=== PATIENT | female | born 1970 | race Caucasian/White ===

== ENCOUNTER → 2024-06-16 | Outpatient (CLI) | payer BC, SELFPAY ==
--- NOTE | 2024-06-16 | IMM_PTH ---
PATIENT: BEATRIZ GEIGER LOC: [facility] U#:[id number] AGE/SX: 54/F ROOM: RE06/16/[address]: Dr. Quin Limon DO : 1970 BED: DIS: 06/16/2024 SPEC #: [id number] RECD: 06/18/24 10:03 STATUS: KESHAWN REOlaf #: [id number] DARELL: 06/16/24 00:[address]: Quin Limon DEPT: IMMUNOHISTOCHEMISTRY RECD BY: Hank Martinez ENTERED: 06/18/24 10:03 SP TYPE: IMMUNO OTHR DR: NAZANIN GAGE DO Tissues: Skin of perianal area Procedures: H Pylori (initial) PHYSICIAN & INSTITUTION [place] [id number] SPECIMEN INFORMATION: Tissue Source: Perirectal region Clinical Info: Condyloma acuminata Specimen Number: [id number] CPT code: 22173,09335 METHODOLOGY: Deparaffinized sections of prefer/formalin-fixed tissue or PAP/DQ stained slides are incubated with monoclonal/polyclonal antibodies/oligonucleotide probes. Localization is made via biotin free immunoperoxidase method. Appropriate controls are performed and reacted as expected. Results on target cell population are indicated in the following table: RESULTS: ANTIBODY / CLONE RESULT P16 (E6H4) positive, focal, patchy Ki-67 (30-9) positive, low These tests were developed and their performance characteristics determined by [facility]. They may not have been cleared or approved by the [place]. Food and Drug Administration. The FDA has determined that such clearance or approval is not necessary. The above immunohistochemical/dualISH markers are ordered and reviewed by the Pathologist. INTERPRETATION: Perirectal region lesion, removal: Focal viral cytopathic change present. MARGARET/ 06/19/2024
--- NOTE | 2024-06-16 | LES_PTH ---
PATIENT: BEATRIZ GEIGER [facility][id number] AGE/SX: 54/F ROOM: RE06/16/[address]: Dr. Quin Limon DO : 1970 BED: DIS: 06/16/2024 SPEC #: [id number] RECD: 06/16/24 14:06 STATUS: KESHAWN HUNG #: [id number] DARELL: 06/16/24 00:[address]: Quin Limon DEPT: SURGICAL PATHOLOGY RECD BY: Alexander Duval ENTERED: 06/17/24 09:51 SP TYPE: Lesion OTHR DR: NAZANIN GAGE DO Tissues: Skin of perianal area Procedures: Surgery Specimen Level IV HEADER OPERATION: Lesion removal PRE-OP DIAGNOSIS: Condyloma acuminata TISSUE SUBMITTED: Perirectal region MICROSCOPIC DIAGNOSIS Perirectal skin lesion, biopsy: Consistent with condyloma acuminatum. See comment. AM.mr 06/18/2024 COMMENT Immunohistochemistry ([id number]) for surrogate HPV marker (p16) supports the above diagnosis. Case has been reviewed in consultation with Dr. Knight who concurs with the above diagnosis. IDC:[id number] MICROSCOPIC DESCRIPTION Slides are reviewed. GROSS DESCRIPTION Received is one container labeled with the patient's name and not further designated. The specimen consists of a piece of bradford-white to light brown skin measuring 0.4 x 0.2 x 0.1cm. The entire specimen is submitted in one cassette. 06/17/2024 TC:5 CPT:24308
== END | disposition home or self-care (01) ==
LOC: LABSPEC 14:15
PROVIDERS: PCP Family Medicine; Referring Provider Obstetrics & Gynecology; Visit Provider Obstetrics & Gynecology
DX: A63.0 Anogenital (venereal) warts (principal)
CPT/HCPCS: 88305; 88342

== ENCOUNTER → 2025-07-29 | Outpatient (CLI) | payer OTHER, MEDICAID, SELFPAY | END | disposition home or self-care (01) | PROVIDERS: PCP Family Medicine; Referring Provider Nurse Practitioner Family; Visit Provider Nurse Practitioner Family | DX: N94.89 Other specified conditions associated with female genital organs and menstrual cycle (principal) | CPT/HCPCS: 87086 ==